=== PATIENT | male | born 1955 | race Caucasian/White ===

== ENCOUNTER 2021-11-27 07:37 | Emergency (ER) | payer OTHER ==
[~2021-11-27] VITALS: Ht 170.2 cm; Wt 85.3 kg
[2021-11-27 07:48] VITALS: BP_SYST 128
--- NOTE | 2021-11-27 07:54 | NUR ---
Patient to ER bed 04 to gown for evaluation. Side rails up.
--- NOTE | 2021-11-27 07:56 | NUR ---
Pt came from home concerned about elevated BP and n/v times three days. States he took his BP this morning and it was 180/115. Denies fever/diarrhea. Pt has hx of DM2 and hypertension. Pt is A&Ox4, calm and cooperative, VSS at this time, patient in no acute distress. Care to be provided as ordered.
[2021-11-27] MEDS ORDERED: NACL 0.9% 1,000 ML IV ONE (08:00)
[2021-11-27] MEDS ORDERED: ONDANSETRON HCL 4 MG/2 ML VIAL IVP ONE (08:00)
--- NOTE | 2021-11-27 08:00 | NUR ---
ER Dr. Wing at bedside examining patient.
[2021-11-27 08:24] LABS: BASOPHILS % (AUTO) 0.1 % (0.0-2.0); HEMATOCRIT 43.7 % (36-54); HEMOGLOBIN 15.2 g/dL (14.0-18.0); LYMPHOCYTES # (AUTO) 0.7 K/uL (1.0-5.5); MEAN CORPUSCULAR HEMOGLOBIN 29 pg (27-31); MEAN CORPUSCULAR HGB CONC 35 % (32-36); MEAN CORPUSCULAR VOLUME 83 fL (79.0-98.0); MONOCYTES # (AUTO) 1.1 K/uL (0.0-1.0); MONOCYTES % (AUTO) 7.1 % (1.7-9.3); NEUTROPHILS # (AUTO) 13.2 K/uL (1.8-7.7); NEUTROPHILS % (AUTO) 87.8 % (40.0-70.0); PLATELET COUNT (AUTO) 178 K/uL (130-430); RED BLOOD CELL COUNT(AUTO) 5.25 MIL/uL (4.2-6.2); RED CELL DISTRIBUTION WIDTH 13.2 % (9.0-15.0); WHITE BLOOD COUNT (AUTO) 15.1 K/uL (4.8-10.8)
[2021-11-27 08:45] LABS: CALCIUM 8.5 mg/dL (8.4-11.0); CREATININE 1.83 mg/dL (0.55-1.30); POTASSIUM 3.9 mmol/L (3.5-5.1)
[2021-11-27 08:50] LABS: ALBUMIN 3.5 g/dL (3.4-4.8)
[2021-11-27] MEDS ORDERED: ONDA-8 TL (09:15)
[2021-11-27] MEDS ORDERED: BENZ1TAB8 PO (09:15)
[2021-11-27] MEDS ORDERED: HAL5 PO (09:15)
[2021-11-27 09:33] VITALS: BP_SYST 128
--- NOTE | 2021-11-27 09:35 | NUR ---
Patient given written and verbal discharge instructions and verbalizes understanding. ER Dr. Maciej ROTHMAN discussed with patient the results and treatment provided. Patient in stable condition. ID arm band removed. IV catheter removed intact and dressing applied, no active bleeding. Rxs of haloperidol, zofran given. Patient educated on pain management and to follow up with PMD. Pain Scale 0/10. Opportunity for questions provided and answered. Medication side effect fact sheet provided.
== END 2021-11-27 10:02 | disposition home or self-care (01) ==
LOC: SED 07:37
DX: R11.2 Nausea with vomiting, unspecified (principal); I10 Essential (primary) hypertension; Z79.899 Other long term (current) drug therapy
CPT/HCPCS: 99283; 96374; 96361; 80053; 83690; 85025; 36415; J2405; J7030

== ENCOUNTER 2022-06-10 11:24 | Emergency (ER) | payer OTHER ==
[~2022-06-10] VITALS: Ht 167.6 cm; Wt 81.6 kg
[~2022-06-10 11:24] MED LIST: BENZ1TAB82 PO; HAL5 PO; ONDA-8 TL
[2022-06-10 11:32] VITALS: BP_SYST 198
[2022-06-10 11:54] LABS: BASOPHILS # (AUTO) 0.1 K/uL (0.0-0.2); BASOPHILS % (AUTO) 0.6 % (0.0-2.0); EOSINOPHILS % (AUTO) 0.1 % (0.0-4.0); HEMATOCRIT 48.1 % (36-54); LYMPHOCYTES # (AUTO) 0.5 K/uL (1.0-5.5); LYMPHOCYTES % (AUTO) 4.3 % (20.5-51.5); MEAN CORPUSCULAR HEMOGLOBIN 28 pg (27-31); MEAN CORPUSCULAR HGB CONC 33 % (32-36); MEAN CORPUSCULAR VOLUME 84 fL (79.0-98.0); MONOCYTES # (AUTO) 0.3 K/uL (0.0-1.0); MONOCYTES % (AUTO) 2.6 % (1.7-9.3); NEUTROPHILS % (AUTO) 92.4 % (40.0-70.0); PLATELET COUNT (AUTO) 163 K/uL (130-430)
[2022-06-10] MEDS ORDERED: DIPHENHYDRAMINE INJ 50 MG/ML VIAL IVP ONE (12:00)
[2022-06-10] MEDS ORDERED: METOCLOPRAMIDE HCL 10 MG/2 ML VIAL IVP ONE (12:00)
[2022-06-10 12:10] LABS: ANION GAP 12 (5-15); CALCIUM 9.3 mg/dL (8.4-11.0); CHLORIDE 103 mmol/L (98-107); CREATININE 1.55 mg/dL (0.55-1.30); GFR AFRICAN AMERICAN 58 mL/min (>90); GLUCOSE 295 mg/dL (70-99); UREA NITROGEN, BLOOD 21 mg/dL (8-21)
[2022-06-10 12:19] LABS: ALANINE AMINOTRANSFERASE 41 U/L (12-78); AMYLASE 74 U/L (0-100); ASPARTATE AMINOTRANSFERASE 31 U/L (10-37); C-REACTIVE PROTEIN QUANT 0.3 mg/dL (0-0.5); LIPASE 121 U/L (73-393); TOTAL BILIRUBIN 0.6 mg/dL (0.0-1.0)
[2022-06-10 12:24] LABS: ACETONE, SERUM NEGATIVE (NEGATIVE)
[2022-06-10] MEDS ORDERED: OMEP20CA15 PO (13:44)
[2022-06-10] MEDS ORDERED: METO-290 PO (13:44)
[2022-06-10] MEDS ORDERED: NACL 0.9% 1,000 ML IV ONE (13:45)
[2022-06-11 16:03] VITALS: BP_SYST 221
== END 2022-06-10 14:30 | disposition home or self-care (01) ==
LOC: SED 11:24
DX: R11.15 Cyclical vomiting syndrome unrelated to migraine (principal); R19.7 Diarrhea, unspecified; E10.9 Type 1 diabetes mellitus without complications; I10 Essential (primary) hypertension; F12.90 Cannabis use, unspecified, uncomplicated; Z79.899 Other long term (current) drug therapy
CPT/HCPCS: 99285; 74176; 96374; 96361; 96375; 80053; 82009; 82150; 82962; 83690; 85025; 86140; 84484; 36415; 76376; 83605; J1200; J2765; J7030

== ENCOUNTER 2023-02-04 09:45 | Inpatient (IN) | payer OTHER ==
[~2023-02-04] VITALS: Ht 170.2 cm; Wt 90.7 kg
[~2023-02-04 09:45] MED LIST changes: -HAL5 PO; +HUM10VIA SUBCUT; +IRBE300T40 PO; +METO-290 PO; +OMEP40CA20 PO; +PRAV20TA59 PO; +REGI10 PO; +TRAM50TA2 PO; +[UNRECOGNIZED DRUG - CODE]
[2023-02-04 10:00] VITALS: BP_SYST 200; PULSE 69; RESP 18; TEMP 97.4; O2SAT 98
[2023-02-04] MEDS ORDERED: HALOPERIDOL LACTATE 5 MG/ML VIAL IVP ONE ×2 (10:30→11:15)
[2023-02-04] MEDS ORDERED: hydrALAZINE HCL 20 MG/ML VIAL IVP ONE ×2 (10:30→12:45)
[2023-02-04 10:50] LABS: BASOPHILS % (AUTO) 0.2 % (0.0-2.0); EOSINOPHILS % (AUTO) 0.1 % (0.0-4.0); HEMOGLOBIN 15.8 g/dL (14.0-18.0); LYMPHOCYTES # (AUTO) 0.6 K/uL (1.0-5.5); LYMPHOCYTES % (AUTO) 4.1 % (20.5-51.5); MEAN CORPUSCULAR HEMOGLOBIN 28 pg (27-31); MEAN CORPUSCULAR HGB CONC 33 % (32-36); MEAN CORPUSCULAR VOLUME 84 fL (79.0-98.0); MONOCYTES # (AUTO) 0.4 K/uL (0.0-1.0); MONOCYTES % (AUTO) 3.2 % (1.7-9.3); NEUTROPHILS # (AUTO) 12.9 K/uL (1.8-7.7); NEUTROPHILS % (AUTO) 92.4 % (40.0-70.0); PLATELET COUNT (AUTO) 168 K/uL (130-430); RED BLOOD CELL COUNT(AUTO) 5.75 MIL/uL (4.2-6.2); RED CELL DISTRIBUTION WIDTH 13.7 % (9.0-15.0)
[2023-02-04 11:01] LABS: CALCIUM 9.6 mg/dL (8.4-11.0); CREATININE 1.52 mg/dL (0.55-1.30); POTASSIUM 3.8 mmol/L (3.5-5.1)
[2023-02-04 11:05] LABS: ALBUMIN 4.3 g/dL (3.4-4.8); BILIRUBIN,DIRECT 0.2 mg/dL (0.0-0.3); TOTAL BILIRUBIN 0.7 mg/dL (0.0-1.0)
[2023-02-04] MEDS ORDERED: KETOROLAC TROMETHAMINE 15 MG VIAL IVP ONE (11:15)
[2023-02-04] MEDS ORDERED: DIPHENHYDRAMINE INJ 50 MG/ML VIAL IVP ONE (11:15)
[2023-02-04] MEDS ORDERED: cloNIDine HCL 0.1 MG TABLET PO ONE ×2 (11:30→13:15)
[2023-02-04] MEDS ORDERED: LABETALOL 100 MG/ 20ML VIAL IVP ONE (16:00)
[2023-02-04] MEDS ORDERED: ONDANSETRON HCL 4 MG/2 ML VIAL IVP PRN (17:00)
[2023-02-04] MEDS: D5/0.45 NS 1,000 ML IV SCH (17:00)
[2023-02-04] MEDS ORDERED: NIFEdipine 30 MG TAB.ER.24 PO ONE (20:45)
[2023-02-04] MEDS ORDERED: iohexoL 240 mgI/mL, 50 ML INFUS..BTL IV ONE (21:59)
[2023-02-04 22:36] VITALS: BP_SYST 157; PULSE 105; RESP 20; TEMP 99.3; O2SAT 100
[2023-02-05] VITALS (8 sets, daily range): BP systolic 152–186; PULSE 87–106; RESP 16–22; TEMP 97.8–99.3; O2SAT 96–98
[2023-02-05] MEDS: D5/0.45 NS 1,000 ML IV SCH ×3 (03:00→23:00)
[2023-02-05] MEDS: cloNIDine HCL 0.1 MG TABLET PO PRN ×3 (04:00→22:03)
[2023-02-05] MEDS ORDERED: NIFEdipine 30 MG TAB.ER.24 PO SCH (08:00)
[2023-02-05] MEDS ORDERED: PANTOPRAZOLE SODIUM 40 MG/VIAL (PROTONIX) IVP SCH (09:00)
[2023-02-05] MEDS: NIFEdipine 30 MG TAB.ER.24 PO SCH (09:24)
[2023-02-05] MEDS ORDERED: METOPROLOL TARTRATE 25 MG TABLET PO ONE (10:30)
[2023-02-05] MEDS: INSULIN REGULAR, HUMAN 100 UNITS/ML, 3 ML VIAL (humuLIN R) SUBCUT PRN ×3 (12:07→22:14)
[2023-02-05] MEDS ORDERED: METOCLOPRAMIDE HCL 10 MG TABLET PO SCH (14:00)
[2023-02-05] MEDS ORDERED: traMADol HCL HCL 50 MG TABLET (ULTRAM) PO PRN (14:00)
[2023-02-05] MEDS ORDERED: ONDANSETRON 4 MG ODT TAB TL PRN (14:00)
[2023-02-05] MEDS: METOCLOPRAMIDE HCL 10 MG TABLET PO SCH ×2 (17:58→22:01)
[2023-02-05] MEDS: METOPROLOL TARTRATE 25 MG TABLET PO SCH (22:02)
[2023-02-06] VITALS (7 sets, daily range): BP systolic 135–198; PULSE 75–95; RESP 16–18; TEMP 96.9–98.9; O2SAT 91–98
[2023-02-06] MEDS: INSULIN REGULAR, HUMAN 100 UNITS/ML, 3 ML VIAL (humuLIN R) SUBCUT PRN ×4 (06:44→20:42)
[2023-02-06 07:02] LABS: CREATININE 1.41 mg/dL (0.55-1.30); POTASSIUM 3.5 mmol/L (3.5-5.1)
[2023-02-06 07:15] LABS: BASOPHILS % (AUTO) 0.1 % (0.0-2.0); HEMATOCRIT 46.7 % (36-54); HEMOGLOBIN 15.7 g/dL (14.0-18.0); LYMPHOCYTES # (AUTO) 1.3 K/uL (1.0-5.5); LYMPHOCYTES % (AUTO) 7.3 % (20.5-51.5); MEAN CORPUSCULAR HEMOGLOBIN 28 pg (27-31); MEAN CORPUSCULAR HGB CONC 34 % (32-36); MEAN CORPUSCULAR VOLUME 82 fL (79.0-98.0); MONOCYTES # (AUTO) 1.5 K/uL (0.0-1.0); MONOCYTES % (AUTO) 8.9 % (1.7-9.3); NEUTROPHILS # (AUTO) 14.4 K/uL (1.8-7.7); NEUTROPHILS % (AUTO) 83.7 % (40.0-70.0); PLATELET COUNT (AUTO) 195 K/uL (130-430); RED BLOOD CELL COUNT(AUTO) 5.66 MIL/uL (4.2-6.2); RED CELL DISTRIBUTION WIDTH 13.8 % (9.0-15.0); WHITE BLOOD COUNT (AUTO) 17.2 K/uL (4.8-10.8)
[2023-02-06] MEDS ORDERED: OMEPRAZOLE Non-Formulary 20 MG CAPSULE.DR PO SCH (09:00)
[2023-02-06] MEDS ORDERED: PRAVASTATIN SODIUM 20 MG TABLET (PRAVACHOL) PO SCH (09:00)
[2023-02-06] MEDS ORDERED: IRBESARTAN 150 MG TABLET (AVAPRO) PO SCH (09:00)
[2023-02-06] MEDS: D5/0.45 NS 1,000 ML IV SCH ×2 (09:00→19:13)
[2023-02-06] MEDS: BENZTROPINE MESYLATE 1 MG TABLET PO SCH (09:46)
[2023-02-06] MEDS: METOPROLOL TARTRATE 25 MG TABLET PO SCH ×2 (09:47→20:40)
[2023-02-06] MEDS: PANTOPRAZOLE SODIUM 40 MG TAB PO SCH (09:47)
[2023-02-06] MEDS: NIFEdipine 30 MG TAB.ER.24 PO SCH (09:47)
[2023-02-06] MEDS: LOSARTAN POTASSIUM 50 MG TABLET (COZAAR) PO SCH (09:49)
[2023-02-06] MEDS: ATORVASTATIN 10 MG TABLET PO SCH (09:53)
[2023-02-06] MEDS ORDERED: cloNIDine HCL 0.1 MG/24 HR PATCH.TDWK TD ONE (10:00)
[2023-02-06 11:54] LABS: BILIRUBIN,URINE NEGATIVE (NEGATIVE); BLOOD, URINE 3+ (NEGATIVE); CLARITY/URINE CLEAR (CLEAR); COLOR,URINE YELLOW (YELLOW); GLUCOSE,URINE 3+ (NEGATIVE); KETONES,URINE TRACE (NEGATIVE); LEUKOCYTE ESTERASE ,URINE NEGATIVE (NEGATIVE); NITRITE, URINE NEGATIVE (NEGATIVE); PROTEIN URINE 3+ (NEGATIVE); UROBILINOGEN,URINE 0.2 (0.2-1.0)
[2023-02-06] MEDS ORDERED: cefTRIAXone 1 GM IVPB PREMIX 50 ML IV SCH (12:00)
[2023-02-06 12:06] LABS: BACTERIA,URINE None Seen /HPF (None Seen); HYALINE CASTS, URINE 0-1 /LPF (None Seen); WBC,URINE NONE SEEN /HPF (0-3)
[2023-02-06] MEDS: cloNIDine HCL 0.1 MG TABLET PO PRN ×2 (12:50→19:13)
[2023-02-06 14:39] LABS: ALBUMIN 3.3 g/dL (3.4-4.8); BILIRUBIN,DIRECT 0.2 mg/dL (0.0-0.3); TOTAL BILIRUBIN 0.8 mg/dL (0.0-1.0)
[2023-02-06] MEDS ORDERED: NIFEdipine 30 MG TAB.ER.24 PO SCH (15:15)
[2023-02-06] MEDS ORDERED: NIFEdipine 30 MG TAB.ER.24 PO ONE (15:30)
[2023-02-06] MEDS: THORAZINE (chlorproMAZINE) 25 MG TAB PO PRN (19:12)
[2023-02-07] VITALS (7 sets, daily range): BP systolic 137–183; PULSE 68–103; RESP 16–18; TEMP 98.3–100.1; O2SAT 96–99
[2023-02-07] MEDS: D5/0.45 NS 1,000 ML IV SCH ×2 (05:00→15:36)
[2023-02-07 06:10] LABS: BASOPHILS % (AUTO) 0.2 % (0.0-2.0); EOSINOPHILS % (AUTO) 0.2 % (0.0-4.0); HEMATOCRIT 46.5 % (36-54); HEMOGLOBIN 16.1 g/dL (14.0-18.0); LYMPHOCYTES % (AUTO) 10.9 % (20.5-51.5); MEAN CORPUSCULAR HEMOGLOBIN 28 pg (27-31); MEAN CORPUSCULAR HGB CONC 35 % (32-36); MEAN CORPUSCULAR VOLUME 81 fL (79.0-98.0); MONOCYTES # (AUTO) 1.1 K/uL (0.0-1.0); MONOCYTES % (AUTO) 11.8 % (1.7-9.3); NEUTROPHILS # (AUTO) 7.3 K/uL (1.8-7.7); NEUTROPHILS % (AUTO) 76.9 % (40.0-70.0); PLATELET COUNT (AUTO) 155 K/uL (130-430); RED BLOOD CELL COUNT(AUTO) 5.71 MIL/uL (4.2-6.2); RED CELL DISTRIBUTION WIDTH 13.3 % (9.0-15.0); WHITE BLOOD COUNT (AUTO) 9.5 K/uL (4.8-10.8)
[2023-02-07 06:29] LABS: CALCIUM 8.4 mg/dL (8.4-11.0); CREATININE 1.13 mg/dL (0.55-1.30); POTASSIUM 3.4 mmol/L (3.5-5.1)
[2023-02-07] MEDS: cloNIDine HCL 0.1 MG TABLET PO PRN (08:03)
[2023-02-07] MEDS: METOPROLOL TARTRATE 25 MG TABLET PO SCH ×2 (09:04→20:31)
[2023-02-07] MEDS: ATORVASTATIN 10 MG TABLET PO SCH (09:04)
[2023-02-07] MEDS: BENZTROPINE MESYLATE 1 MG TABLET PO SCH (09:05)
[2023-02-07] MEDS: LOSARTAN POTASSIUM 50 MG TABLET (COZAAR) PO SCH (09:05)
[2023-02-07] MEDS: PANTOPRAZOLE SODIUM 40 MG TAB PO SCH (09:05)
[2023-02-07] MEDS: THORAZINE (chlorproMAZINE) 25 MG TAB PO PRN (09:08)
[2023-02-07] MEDS: NIFEdipine 30 MG TAB.ER.24 PO SCH ×2 (09:22→20:31)
[2023-02-07] MEDS ORDERED: cloNIDine HCL 0.2 MG/24 HR PATCH.TDWK TD ONE (11:15)
[2023-02-07 11:54] LABS: BASOPHILS % (AUTO) 0.3 % (0.0-2.0); EOSINOPHILS % (AUTO) 0.2 % (0.0-4.0); HEMATOCRIT 45.9 % (36-54); HEMOGLOBIN 15.7 g/dL (14.0-18.0); LYMPHOCYTES # (AUTO) 1.3 K/uL (1.0-5.5); LYMPHOCYTES % (AUTO) 11.7 % (20.5-51.5); MEAN CORPUSCULAR HEMOGLOBIN 28 pg (27-31); MEAN CORPUSCULAR HGB CONC 34 % (32-36); MEAN CORPUSCULAR VOLUME 82 fL (79.0-98.0); MONOCYTES # (AUTO) 1.3 K/uL (0.0-1.0); MONOCYTES % (AUTO) 11.6 % (1.7-9.3); NEUTROPHILS # (AUTO) 8.2 K/uL (1.8-7.7); NEUTROPHILS % (AUTO) 76.2 % (40.0-70.0); PLATELET COUNT (AUTO) 159 K/uL (130-430); RED BLOOD CELL COUNT(AUTO) 5.63 MIL/uL (4.2-6.2); RED CELL DISTRIBUTION WIDTH 13.5 % (9.0-15.0); WHITE BLOOD COUNT (AUTO) 10.8 K/uL (4.8-10.8)
[2023-02-07] MEDS ORDERED: cloNIDine HCL 0.2 MG TABLET PO ONE (12:15)
[2023-02-07] MEDS: INSULIN REGULAR, HUMAN 100 UNITS/ML, 3 ML VIAL (humuLIN R) SUBCUT PRN ×2 (16:28→20:38)
[2023-02-07] MEDS: levoFLOXacin 500 MG TABLET PO SCH (20:31)
[2023-02-08] VITALS (8 sets, daily range): BP systolic 147–172; PULSE 70–89; RESP 16–19; TEMP 98–99.3; O2SAT 95–98
[2023-02-08] MEDS: D5/0.45 NS 1,000 ML IV SCH (00:39)
[2023-02-08] MEDS: INSULIN REGULAR, HUMAN 100 UNITS/ML, 3 ML VIAL (humuLIN R) SUBCUT PRN ×4 (06:48→22:10)
[2023-02-08 08:06] LABS: % FREE PSA 5.6 % (.); FREE PSA 0.44 ng/mL; PROSTATE SPECIFIC AG TOTAL 7.9 ng/mL (0.0-4.0)
[2023-02-08 09:18] LABS: BILIRUBIN,URINE NEGATIVE (NEGATIVE); CLARITY/URINE CLEAR (CLEAR); COLOR,URINE YELLOW (YELLOW); GLUCOSE,URINE 1+ (NEGATIVE); KETONES,URINE NEGATIVE (NEGATIVE); LEUKOCYTE ESTERASE ,URINE NEGATIVE (NEGATIVE); NITRITE, URINE NEGATIVE (NEGATIVE); PROTEIN URINE 2+ (NEGATIVE)
[2023-02-08] MEDS: ATORVASTATIN 10 MG TABLET PO SCH (09:25)
[2023-02-08] MEDS: NIFEdipine 30 MG TAB.ER.24 PO SCH ×2 (09:25→21:58)
[2023-02-08] MEDS: LOSARTAN POTASSIUM 50 MG TABLET (COZAAR) PO SCH (09:26)
[2023-02-08] MEDS: BENZTROPINE MESYLATE 1 MG TABLET PO SCH (09:26)
[2023-02-08] MEDS: PANTOPRAZOLE SODIUM 40 MG TAB PO SCH (09:26)
[2023-02-08] MEDS: METOPROLOL TARTRATE 25 MG TABLET PO SCH (09:27)
[2023-02-08 09:56] LABS: BLOOD, URINE TRACE (NEGATIVE)
[2023-02-08 09:57] LABS: BACTERIA,URINE None Seen /HPF (None Seen); WBC,URINE NONE SEEN /HPF (0-3)
[2023-02-08] MEDS: NACL 0.9% 1,000 ML IV SCH ×2 (11:30→21:59)
[2023-02-08 11:55] LABS: BASOPHILS # (AUTO) 0.1 K/uL (0.0-0.2); BASOPHILS % (AUTO) 0.8 % (0.0-2.0); EOSINOPHILS # (AUTO) 0.2 K/uL (0.0-0.4); EOSINOPHILS % (AUTO) 2.2 % (0.0-4.0); HEMATOCRIT 47.1 % (36-54); LYMPHOCYTES # (AUTO) 1.4 K/uL (1.0-5.5); LYMPHOCYTES % (AUTO) 16.4 % (20.5-51.5); MEAN CORPUSCULAR HEMOGLOBIN 28 pg (27-31); MEAN CORPUSCULAR HGB CONC 34 % (32-36); MEAN CORPUSCULAR VOLUME 83 fL (79.0-98.0); NEUTROPHILS # (AUTO) 5.8 K/uL (1.8-7.7); NEUTROPHILS % (AUTO) 68.6 % (40.0-70.0); PLATELET COUNT (AUTO) 150 K/uL (130-430); RED BLOOD CELL COUNT(AUTO) 5.72 MIL/uL (4.2-6.2); RED CELL DISTRIBUTION WIDTH 13.3 % (9.0-15.0); WHITE BLOOD COUNT (AUTO) 8.4 K/uL (4.8-10.8)
[2023-02-08] MEDS ORDERED: METOPROLOL TARTRATE 25 MG TABLET PO ONE (12:00)
[2023-02-08 12:02] LABS: HEMOGLOBIN A1C 7.94 % (<5.7)
[2023-02-08 12:19] LABS: ALBUMIN 3.1 g/dL (3.4-4.8); CALCIUM 8.6 mg/dL (8.4-11.0); CREATININE 1.26 mg/dL (0.55-1.30); POTASSIUM 3.7 mmol/L (3.5-5.1); TOTAL BILIRUBIN 0.7 mg/dL (0.0-1.0); TOTAL PROTEIN, SERUM 6.6 g/dL (6.4-8.3)
[2023-02-08] MEDS ORDERED: CLON0.2T PO (15:54)
[2023-02-08] MEDS ORDERED: INSULIN GLARGINE 100 UNITS/ML, 10 ML VIAL SUBCUT SCH (21:00)
[2023-02-08] MEDS: METOPROLOL TARTRATE 50 MG TABLET PO SCH (21:58)
[2023-02-08] MEDS: levoFLOXacin 500 MG TABLET PO SCH (21:58)
[2023-02-09] VITALS: BP_SYST 157; PULSE 62; RESP 16; TEMP 98.3; O2SAT 99
[2023-02-09] MEDS: NACL 0.9% 1,000 ML IV SCH (06:39)
[2023-02-09 06:58] LABS: BASOPHILS % (AUTO) 0.4 % (0.0-2.0); EOSINOPHILS # (AUTO) 0.4 K/uL (0.0-0.4); EOSINOPHILS % (AUTO) 4.3 % (0.0-4.0); HEMATOCRIT 43.5 % (36-54); HEMOGLOBIN 14.8 g/dL (14.0-18.0); LYMPHOCYTES # (AUTO) 1.7 K/uL (1.0-5.5); LYMPHOCYTES % (AUTO) 20.7 % (20.5-51.5); MEAN CORPUSCULAR HEMOGLOBIN 28 pg (27-31); MEAN CORPUSCULAR HGB CONC 34 % (32-36); MEAN CORPUSCULAR VOLUME 82 fL (79.0-98.0); MONOCYTES # (AUTO) 0.8 K/uL (0.0-1.0); MONOCYTES % (AUTO) 9.5 % (1.7-9.3); NEUTROPHILS # (AUTO) 5.4 K/uL (1.8-7.7); NEUTROPHILS % (AUTO) 65.1 % (40.0-70.0); PLATELET COUNT (AUTO) 145 K/uL (130-430); RED BLOOD CELL COUNT(AUTO) 5.32 MIL/uL (4.2-6.2); RED CELL DISTRIBUTION WIDTH 13.2 % (9.0-15.0); WHITE BLOOD COUNT (AUTO) 8.3 K/uL (4.8-10.8)
[2023-02-09 07:21] LABS: ALBUMIN 2.8 g/dL (3.4-4.8); CALCIUM 8.5 mg/dL (8.4-11.0); CREATININE 1.04 mg/dL (0.55-1.30); POTASSIUM 3.6 mmol/L (3.5-5.1); TOTAL BILIRUBIN 0.6 mg/dL (0.0-1.0); TOTAL PROTEIN, SERUM 5.9 g/dL (6.4-8.3)
[2023-02-09 08:08] VITALS: BP_SYST 157; PULSE 65; RESP 16; TEMP 98.1; O2SAT 96
[2023-02-09 08:30] VITALS: O2SAT 96
[2023-02-09] MEDS: ATORVASTATIN 10 MG TABLET PO SCH (09:00)
[2023-02-09] MEDS: PANTOPRAZOLE SODIUM 40 MG TAB PO SCH (10:09)
[2023-02-09] MEDS: NIFEdipine 30 MG TAB.ER.24 PO SCH (10:10)
[2023-02-09] MEDS: METOPROLOL TARTRATE 50 MG TABLET PO SCH (10:10)
[2023-02-09] MEDS: BENZTROPINE MESYLATE 1 MG TABLET PO SCH (10:10)
[2023-02-09] MEDS: LOSARTAN POTASSIUM 50 MG TABLET (COZAAR) PO SCH (10:10)
[2023-02-09 11:42] VITALS: BP_SYST 151; PULSE 82; RESP 16; TEMP 98.9; O2SAT 96
[2023-02-09] MEDS: INSULIN REGULAR, HUMAN 100 UNITS/ML, 3 ML VIAL (humuLIN R) SUBCUT PRN (11:50)
[2023-02-09 12:22] VITALS: BP_SYST 151; PULSE 82; RESP 16; TEMP 98.9; O2SAT 96
[2023-02-09] MEDS ORDERED: METO-442 PO (13:38)
[2023-02-09] MEDS ORDERED: LOSA-413 PO (13:38)
[2023-02-09] MEDS ORDERED: PRO40 PO (13:38)
[2023-02-09] MEDS ORDERED: NIFE-129 PO (13:41)
[2023-02-09] MEDS ORDERED: CLON0.1T PO ×2 (13:52→13:56)
[2023-02-14] MEDS ORDERED: cloNIDine HCL 0.2 MG/24 HR PATCH.TDWK TD SCH (09:00)
== END 2023-02-09 14:32 | disposition home or self-care (01) | DRG 683 ==
LOC: SED 09:45 → STU 16:50 → SMU 02-08 15:20
PROVIDERS: ADMIT Specialist; ATTEND Specialist
DX: N17.9 Acute kidney failure, unspecified (principal); R65.10 Systemic inflammatory response syndrome (SIRS) of non-infectious origin without acute organ dysfunction; I10 Essential (primary) hypertension; E11.319 Type 2 diabetes mellitus with unspecified diabetic retinopathy without macular edema; K76.0 Fatty (change of) liver, not elsewhere classified; E11.40 Type 2 diabetes mellitus with diabetic neuropathy, unspecified; F12.90 Cannabis use, unspecified, uncomplicated; Z79.4 Long term (current) use of insulin; Z79.899 Other long term (current) drug therapy; R11.2 Nausea with vomiting, unspecified
CPT/HCPCS: 36415; 71045; 74018; 74160; 76376; 76700; 78264; 80048; 80053; 80076; 81000; 81001; 81015; 82140; 82962; 83037; 83605; 83690; 83735; 84153; 85025; 87040; 93005; 97110-GP; 97116-GP; 97530-GP; 99285; A9541; C9113; G0378; J0360; J0696; J1200; J1630; J1815; J1885; J2405; J3490; J8597; Q0161; Q9966